=== PATIENT | female | born 1975 | race Caucasian/White ===

== ENCOUNTER 2017-05-23 15:27 | Emergency (ER) | payer OTHER ==
[~2017-05-23] VITALS: Ht 165.1 cm; Wt 58.5 kg
[~2017-05-23 15:27] MED LIST: AZITHROMYCIN 2250 MG PO; CARISOPRODOL 3350 MG PO; CIPRO500 M1 PO; CIPRO500 MG PO; FLAGYL500 MG PO; LAMICTAL XR200 MG PO; NAPROSYN500 MG PO; NOHOMEMEDICATIONS; NORCO 5-325 TA1 EACH PO; PAXIL40 MG PO
[2017-05-23 15:39] VITALS: BP 100/66
== END 2017-05-23 16:11 | disposition left against medical advice (07) ==
LOC: M.ERS 15:27
DX: Z53.21 Procedure and treatment not carried out due to patient leaving prior to being seen by health care provider (principal)

== ENCOUNTER 2017-12-06 19:04 | Emergency (ER) | payer OTHER ==
[~2017-12-06] VITALS: Ht 165.1 cm; Wt 59.0 kg
[2017-12-06 19:21] LABS: URINE BILIRUBIN NEGATIVE (Negative); URINE BLOOD NEGATIVE (Negative); URINE CLARITY CLEAR; URINE COLOR YELLOW; URINE GLUCOSE-RANDOM NEGATIVE (Negative); URINE KETONES NEGATIVE (Negative); URINE NITRITE-REFLEX NEGATIVE (Negative); URINE PROTEIN NEGATIVE (Negative); URINE SPECIFIC GRAVITY <= 1.005 (1.005-1.030); URINE UROBILINOGEN 0.2 E.U./dl (0.2-1.0)
[2017-12-06 19:24] LABS: URINE LEUKOCYTES-REFLEX 2+ (Negative)
[2017-12-06 19:30] LABS: CRYSTALS None Seen /LPF (None Seen); SQUAMOUS NONE SEEN /LPF (0-3)
[2017-12-06 19:31] LABS: CASTS None Seen /LPF (None Seen); URINE RBC None Seen /HPF (0-2)
[2017-12-06] MEDS ORDERED: MACROBID 100 M100 M1 PO (20:03)
[2017-12-06 20:19] VITALS: BP 129/78
== END 2017-12-06 20:19 | disposition home or self-care (01) ==
LOC: M.ERS 19:04
PROVIDERS: Nurse Practitioner Family
DX: N39.0 Urinary tract infection, site not specified (principal); F31.9 Bipolar disorder, unspecified; G89.29 Other chronic pain; M54.9 Dorsalgia, unspecified; F17.210 Nicotine dependence, cigarettes, uncomplicated; Z90.49 Acquired absence of other specified parts of digestive tract; Z90.710 Acquired absence of both cervix and uterus

== ENCOUNTER 2018-03-22 21:11 | Emergency (ER) | payer OTHER ==
[~2018-03-22] VITALS: Ht 165.1 cm; Wt 59.0 kg
[~2018-03-22 21:11] MED LIST changes: +MACROBID 100 M100 M1 PO
[2018-03-22 22:01] LABS: URINE BILIRUBIN NEGATIVE (Negative); URINE BLOOD NEGATIVE (Negative); URINE CLARITY CLEAR; URINE COLOR YELLOW; URINE GLUCOSE-RANDOM NEGATIVE (Negative); URINE KETONES TRACE (Negative); URINE LEUKOCYTES-REFLEX TRACE (Negative); URINE PROTEIN 1+ (Negative); URINE SPECIFIC GRAVITY >= 1.030 (1.005-1.030); URINE UROBILINOGEN 0.2 E.U./dl (0.2-1.0)
[2018-03-22 22:03] LABS: URINE NITRITE-REFLEX POSITIVE (Negative)
[2018-03-22 22:04] LABS: CASTS None Seen /LPF (None Seen); MUCUS >6 Heavy strn/LPF (None Seen); SQUAMOUS >10 Many /LPF (0-3); URINE RBC None Seen /HPF (0-2); URINE WBC-REFLEX 0-5 Rare /HPF (0-5)
[2018-03-22 22:05] LABS: BACTERIA-REFLEX 1-9 Few /HPF (None Seen); CRYSTALS None Seen /LPF (None Seen)
[2018-03-22 22:07] LABS: ABSOLUTE BASOPHILS 0.1 thou/uL (0.0-0.2); ABSOLUTE EOSINOPHILS 0.2 thou/uL (0.0-0.7); ABSOLUTE LYMPHOCYTES 2.5 thou/uL (0.8-5.3); ABSOLUTE MONOCYTES 0.7 thou/uL (0.0-1.2); BASOPHILS 0.5 %; EOSINOPHILS 2.1 %; HEMATOCRIT 44.5 % (37.0-47.0); HEMOGLOBIN 15.2 gm/dL (12.0-15.0); LYMPHOCYTES 21.8 %; MCH 33.9 pg (26.0-34.0); MCHC 34.1 g/dL (28.0-37.0); MCV 99.6 fL (80.0-100.0); MONOCYTES 5.8 %; MPV 8.5 fl. (7.2-11.1); NUCLEATED RBCS 0 /100WBC; PLATELET COUNT* 337 thou/uL (150-400); POLYS 69.8 %; RBC 4.47 mil/uL (4.20-5.00); RDW-CV 12.5 % (10.5-14.5); WBC 11.5 thou/uL (4.0-11.0)
[2018-03-22 22:15] LABS: CALCIUM 9.2 mg/dL (8.5-10.1); CREATININE 0.6 mg/dL (0.6-1.3); POTASSIUM 3.5 mmol/L (3.5-5.1)
[2018-03-22 22:21] LABS: TOTAL BILIRUBIN 0.3 mg/dL (<0.1-1.0)
[2018-03-22] MEDS ORDERED: BENTYL 20 MG TA20 M1 PO (23:09)
[2018-03-22] MEDS ORDERED: MACROBID 100 M100 M1 PO (23:09)
[2018-03-22] MEDS ORDERED: ZOFRAN4 MG PO (23:09)
[2018-03-23 00:04] VITALS: BP 104/61
== END 2018-03-23 00:05 | disposition home or self-care (01) ==
LOC: M.ERS 21:11
PROVIDERS: Nurse Practitioner Family
DX: N39.0 Urinary tract infection, site not specified (principal); R74.8 Abnormal levels of other serum enzymes; F31.9 Bipolar disorder, unspecified; M54.9 Dorsalgia, unspecified; G89.29 Other chronic pain; Z90.49 Acquired absence of other specified parts of digestive tract; Z90.710 Acquired absence of both cervix and uterus

== ENCOUNTER 2018-07-06 13:01 | Emergency (ER) | payer OTHER ==
[~2018-07-06] VITALS: Ht 165.1 cm; Wt 59.0 kg
[~2018-07-06 13:01] MED LIST changes: +BENTYL 20 MG TA20 M1 PO; +ZOFRAN4 MG PO
[2018-07-06 14:16] VITALS: BP 102/54
== END 2018-07-06 14:18 | disposition home or self-care (01) ==
LOC: M.ERS 13:01
DX: N89.8 Other specified noninflammatory disorders of vagina (principal); F17.200 Nicotine dependence, unspecified, uncomplicated; F31.9 Bipolar disorder, unspecified; M54.9 Dorsalgia, unspecified; G89.29 Other chronic pain; Z90.710 Acquired absence of both cervix and uterus; Z90.49 Acquired absence of other specified parts of digestive tract

== ENCOUNTER 2018-12-21 13:14 | Emergency (ER) | payer OTHER ==
[~2018-12-21] VITALS: Ht 165.1 cm; Wt 59.0 kg
[2018-12-21 13:35] LABS: URINE BILIRUBIN NEGATIVE (Negative); URINE BLOOD TRACE (Negative); URINE CLARITY CLEAR; URINE COLOR YELLOW; URINE GLUCOSE-RANDOM NEGATIVE (Negative); URINE KETONES NEGATIVE (Negative); URINE LEUKOCYTES-REFLEX NEGATIVE (Negative); URINE PROTEIN NEGATIVE (Negative); URINE SPECIFIC GRAVITY 1.025 (1.005-1.030); URINE UROBILINOGEN 0.2 E.U./dl (0.2-1.0)
[2018-12-21 13:36] LABS: URINE NITRITE-REFLEX POSITIVE (Negative)
[2018-12-21 13:48] LABS: SQUAMOUS 0-3 Few /LPF (0-3)
[2018-12-21 13:49] LABS: BACTERIA-REFLEX >30 Many /HPF (None Seen); CASTS None Seen /LPF (None Seen); CRYSTALS None Seen /LPF (None Seen); MUCUS 4-6 Moderate strn/LPF (None Seen); URINE RBC 3-10 Few /HPF (0-2); URINE WBC-REFLEX 0-5 Rare /HPF (0-5)
[2018-12-21] MEDS ORDERED: BACTRIM DS TAB1 EACH PO (14:06)
[2018-12-21 14:32] VITALS: BP 134/82
== END 2018-12-21 14:32 | disposition home or self-care (01) ==
LOC: M.ERS 13:14
PROVIDERS: Physician Assistant
DX: N39.0 Urinary tract infection, site not specified (principal); N89.8 Other specified noninflammatory disorders of vagina; F31.9 Bipolar disorder, unspecified; G89.29 Other chronic pain; Z90.49 Acquired absence of other specified parts of digestive tract; Z90.710 Acquired absence of both cervix and uterus

== ENCOUNTER 2020-05-03 20:53 | Emergency (ER) | payer OTHER ==
[~2020-05-03] VITALS: Ht 162.6 cm; Wt 63.5 kg
[~2020-05-03 20:53] MED LIST changes: +BACTRIM DS TAB1 EACH PO
[2020-05-03] MEDS ORDERED: CYCLOBENZAPRINE5 MG PO (23:52)
[2020-05-03] MEDS ORDERED: IBUPROFEN 800800 MG PO (23:52)
[2020-05-03 23:58] VITALS: BP 104/63
== END 2020-05-03 23:58 | disposition home or self-care (01) ==
LOC: M.ERS 20:53
DX: M54.5 Low back pain (principal); Z90.49 Acquired absence of other specified parts of digestive tract; Z90.710 Acquired absence of both cervix and uterus; Y08.89XA Assault by other specified means, initial encounter; Y93.89 Activity, other specified; Y92.89 Other specified places as the place of occurrence of the external cause; Y99.8 Other external cause status

== ENCOUNTER 2020-05-22 15:15 | Emergency (ER) | payer OTHER ==
[~2020-05-22] VITALS: Ht 165.1 cm; Wt 59.0 kg
[~2020-05-22 15:15] MED LIST changes: +CYCLOBENZAPRINE5 MG PO; +IBUPROFEN 800800 MG PO
[2020-05-22 16:39] LABS: URINE BILIRUBIN NEGATIVE (Negative); URINE BLOOD NEGATIVE (Negative); URINE CLARITY CLEAR; URINE COLOR YELLOW; URINE GLUCOSE-RANDOM NEGATIVE (Negative); URINE KETONES NEGATIVE (Negative); URINE LEUKOCYTES-REFLEX NEGATIVE (Negative); URINE NITRITE-REFLEX NEGATIVE (Negative); URINE PROTEIN NEGATIVE (Negative); URINE SPECIFIC GRAVITY 1.025 (1.005-1.030); URINE UROBILINOGEN 0.2 E.U./dl (0.2-1.0)
[2020-05-22] MEDS ORDERED: FLAGYL500 M1 PO (17:49)
[2020-05-22 17:55] VITALS: BP 100/70
== END 2020-05-22 17:55 | disposition home or self-care (01) ==
LOC: M.ERS 15:15
PROVIDERS: Physician Assistant
DX: N76.0 Acute vaginitis (principal); Z90.49 Acquired absence of other specified parts of digestive tract

== ENCOUNTER 2020-10-04 20:38 | Emergency (ER) | payer OTHER ==
[~2020-10-04] VITALS: Ht 165.1 cm; Wt 56.7 kg
[~2020-10-04 20:38] MED LIST changes: +FLAGYL500 M1 PO
[2020-10-04 21:06] VITALS: BP 123/69
[2020-10-04 21:11] LABS: URINE BILIRUBIN NEGATIVE (Negative); URINE BLOOD NEGATIVE (Negative); URINE CLARITY SL HAZY; URINE COLOR YELLOW; URINE GLUCOSE-RANDOM NEGATIVE (Negative); URINE KETONES NEGATIVE (Negative); URINE LEUKOCYTES-REFLEX TRACE (Negative); URINE NITRITE-REFLEX POSITIVE (Negative); URINE PROTEIN NEGATIVE (Negative); URINE UROBILINOGEN 0.2 E.U./dl (0.2-1.0)
[2020-10-04 21:19] LABS: AMP/METHAMP Negative (Negative); BARBITURATES Negative (Negative); BENZODIAZEPINES POSITIVE (Negative); COCAINE Negative (Negative); METHADONE Negative (Negative); OPIATES Negative (Negative); PCP Negative (Negative); THC POSITIVE (Negative)
[2020-10-04 21:20] LABS: SQUAMOUS 0-3 Few /LPF (0-3); TRANSITIONAL EPITHEL CELL 0-3 Few /LPF (None Seen)
[2020-10-04 21:21] LABS: BACTERIA-REFLEX >30 Many /HPF (None Seen); CASTS None Seen /LPF (None Seen); CRYSTALS None Seen /LPF (None Seen); MUCUS 0-3 Light strn/LPF (None Seen); URINE RBC 3-10 Few /HPF (0-2); URINE WBC-REFLEX >25 Many /HPF (0-5); WBC CLUMPS Moderate (None Seen)
[2020-10-04] MEDS ORDERED: BACTRIM DS TAB1 EACH PO (22:00)
[2020-10-04] MEDS ORDERED: FLEXERIL PO (22:00)
[2020-10-04] MEDS ORDERED: DICLOFENAC SODI75 MG PO (22:00)
[2020-10-04] MEDS ORDERED: FLAGYL500 M1 PO (22:10)
== END 2020-10-04 22:13 | disposition home or self-care (01) ==
LOC: M.ERS 20:38
PROVIDERS: Emergency Medicine
DX: R20.0 Anesthesia of skin (principal); N93.9 Abnormal uterine and vaginal bleeding, unspecified; N39.0 Urinary tract infection, site not specified; M25.552 Pain in left hip; N39.3 Stress incontinence (female) (male); Z90.710 Acquired absence of both cervix and uterus; Z90.49 Acquired absence of other specified parts of digestive tract

== ENCOUNTER 2020-12-20 17:05 | Emergency (ER) | payer OTHER ==
[~2020-12-20] VITALS: Ht 165.1 cm; Wt 56.7 kg
[~2020-12-20 17:05] MED LIST changes: +DICLOFENAC SODI75 MG PO; +FLEXERIL PO
[2020-12-20] MEDS ORDERED: FLEXERIL PO (17:26)
[2020-12-20 18:14] LABS: URINE BILIRUBIN NEGATIVE (Negative); URINE BLOOD NEGATIVE (Negative); URINE CLARITY CLEAR; URINE COLOR YELLOW; URINE GLUCOSE-RANDOM NEGATIVE (Negative); URINE KETONES NEGATIVE (Negative); URINE LEUKOCYTES-REFLEX NEGATIVE (Negative); URINE NITRITE-REFLEX NEGATIVE (Negative); URINE PROTEIN NEGATIVE (Negative); URINE SPECIFIC GRAVITY 1.015 (1.005-1.030); URINE UROBILINOGEN 0.2 E.U./dl (0.2-1.0)
[2020-12-20] MEDS ORDERED: DOXYCYCLINE 10100 MG PO (18:26)
[2020-12-20] MEDS ORDERED: SUPRAX400 M1 PO (18:26)
[2020-12-20] MEDS ORDERED: REPLENS VAGINAL35 GM VAG (18:31)
[2020-12-20 18:38] VITALS: BP 100/54
== END 2020-12-20 18:39 | disposition home or self-care (01) ==
LOC: M.ERS 17:05
PROVIDERS: Nurse Practitioner Family
DX: L85.3 Xerosis cutis (principal); N89.8 Other specified noninflammatory disorders of vagina; F32.9 Major depressive disorder, single episode, unspecified; Z90.710 Acquired absence of both cervix and uterus; Z90.89 Acquired absence of other organs; Z79.899 Other long term (current) drug therapy

== ENCOUNTER 2021-03-25 10:36 | Emergency (ER) | payer OTHER ==
[~2021-03-25] VITALS: Ht 165.1 cm; Wt 56.7 kg
[~2021-03-25 10:36] MED LIST changes: +DOXYCYCLINE 10100 MG PO; +REPLENS VAGINAL35 GM VAG; +SUPRAX400 M1 PO
[2021-03-25 11:03] LABS: URINE BILIRUBIN NEGATIVE (Negative); URINE BLOOD TRACE (Negative); URINE CLARITY CLEAR; URINE COLOR YELLOW; URINE GLUCOSE-RANDOM NEGATIVE (Negative); URINE KETONES NEGATIVE (Negative); URINE LEUKOCYTES-REFLEX NEGATIVE (Negative); URINE NITRITE-REFLEX NEGATIVE (Negative); URINE PROTEIN NEGATIVE (Negative); URINE SPECIFIC GRAVITY >= 1.030 (1.005-1.030); URINE UROBILINOGEN 0.2 E.U./dl (0.2-1.0)
[2021-03-25] MEDS ORDERED: METRONIDAZOLE500 M4 PO (12:14)
[2021-03-25 12:32] VITALS: BP 98/49
== END 2021-03-25 12:33 | disposition home or self-care (01) ==
LOC: M.ERS 10:36
PROVIDERS: Nurse Practitioner Family
DX: N76.0 Acute vaginitis (principal); F32.9 Major depressive disorder, single episode, unspecified; Z20.2 Contact with and (suspected) exposure to infections with a predominantly sexual mode of transmission; Z90.710 Acquired absence of both cervix and uterus; Z90.49 Acquired absence of other specified parts of digestive tract